=== PATIENT | female | born 1985 | race African-American/Black ===

== ENCOUNTER 2017-10-20 13:21 | Emergency (ER) | payer MEDICAID ==
[~2017-10-20] VITALS: Ht 165.1 cm; Wt 136.0 kg
[2017-10-20 14:29] VITALS: BP 134/79
== END 2017-10-20 15:20 | disposition home or self-care (01) ==
LOC: ER 13:21
DX: Z51.89 Encounter for other specified aftercare (principal); R25.2 Cramp and spasm; M54.5 Low back pain; I10 Essential (primary) hypertension
CPT/HCPCS: 99281; Z7610

== ENCOUNTER 2018-01-13 18:04 | Emergency (ER) | payer BC, MEDICAID ==
[~2018-01-13] VITALS: Ht 165.1 cm; Wt 135.0 kg
[2018-01-13] MEDS ORDERED: VISCOUS LIDOCAINE 2% 15 ML UDC MM PRN (19:45)
[2018-01-13 19:55] VITALS: BP 172/87
== END 2018-01-13 21:19 | disposition home or self-care (01) ==
LOC: ER 20:10
DX: J06.9 Acute upper respiratory infection, unspecified (principal); I10 Essential (primary) hypertension
CPT/HCPCS: 99283

== ENCOUNTER 2018-12-06 18:17 | Emergency (ER) | payer MEDICAID ==
[~2018-12-06] VITALS: Ht 165.1 cm; Wt 130.0 kg
[2018-12-06] MEDS ORDERED: IBUPROFEN 600MG TABLET PO ONE (21:30)
[2018-12-06 21:50] VITALS: BP 120/87
== END 2018-12-06 23:19 | disposition home or self-care (01) ==
LOC: ER 18:17
DX: M79.645 Pain in left finger(s) (principal); I10 Essential (primary) hypertension
CPT/HCPCS: 73130; 99283